=== PATIENT | female | born 1990 | race Caucasian/White ===

== ENCOUNTER 2021-02-10 19:08 | Emergency (ER) | payer OTHER ==
[2021-02-10 19:52] LABS: BASOPHIL 0.3 % (0-2); EOSINOPHIL 0.3 % (0-5); HCT 41.4 % (37.0-47.0); HGB 13.6 g/dl (12.5-16.0); LYMPHOCYTE 17.2 % (15-48); MCHC 32.9 g/dL (32.0-36.0); MCV 82.3 fL (78.0-100.0); MONOCYTE 4.6 % (0-12); MPV 10.3 fL (6.0-9.5); NEUTROPHIL 77.3 % (41-80); NRBC 0; PLT 369 K/uL (150-400); RBC 5.03 M/uL (4.20-5.40); RDW 13.2 % (11.5-14.0); WBC 11.5 K/uL (4.0-10.5)
[2021-02-10 19:57] LABS: BILIRUBIN NEGATIVE (NEGATIVE); BLOOD 3+ Ery/uL (NEGATIVE); CLARITY CLEAR (CLEAR); COLOR YELLOW (YELLOW); GLUCOSE (U) NORMAL (NORMAL); LEUKOCYTES 3+ Leu/uL (NEGATIVE); NITRITE NEGATIVE (NEGATIVE); PROTEIN NEGATIVE (NEGATIVE); SPECIFIC GRAVITY 1.025 (1.001-1.030); UROBILINOGEN 0.2 mg/dL (0.2-1.0); pH 6.5 (5.0-9.0)
[2021-02-10 20:03] LABS: BACTERIA 3+; MUCOUS TRACE; SQUAMOUS EPITHELIAL CELLS 20-50
[2021-02-10 20:09] LABS: BILIRUBIN - TOTAL 0.5 mg/dL (0.2-1.0); CREATININE 0.8 mg/dL (0.51-0.95); GLOBULIN (CALCULATION) 3.8 g/dL; TOTAL PROTEIN 7.8 g/dL (6.4-8.2)
[2021-02-10] MEDS ORDERED: PHENERGAN25 M1 PO (23:43)
[2021-02-10] MEDS ORDERED: PRENATAL FORMU1 EACH PO (23:43)
[2021-02-10] MEDS ORDERED: CEPHALEXIN500 M1 PO (23:43)
== END 2021-02-11 00:01 | disposition home or self-care (01) ==
LOC: FER 19:08
PROVIDERS: Emergency Medicine Emergency Medical Services
DX: O23.11 Infections of bladder in pregnancy, first trimester (principal); O99.891 Other specified diseases and conditions complicating pregnancy; R19.7 Diarrhea, unspecified; Z88.6 Allergy status to analgesic agent; Z88.1 Allergy status to other antibiotic agents; Z3A.01 Less than 8 weeks gestation of pregnancy
CPT/HCPCS: 36415; 76815; 80053; 81001; 83605; 83690; 84145; 84702; 85025; 86900; 86901; J0696; J2405; J7030; Q0169

== ENCOUNTER 2021-02-17 18:04 | Emergency (ER) | payer OTHER ==
[~2021-02-17 18:04] MED LIST: CEPHALEXIN500 M1 PO; PHENERGAN25 M1 PO; PRENATAL FORMU1 EACH PO
[2021-02-17 19:37] LABS: BASOPHIL 0.2 % (0-2); EOSINOPHIL 0.2 % (0-5); HCT 39.7 % (37.0-47.0); HGB 13.3 g/dl (12.5-16.0); LYMPHOCYTE 18.5 % (15-48); MCH 27.7 pg (25.0-31.0); MCHC 33.5 g/dL (32.0-36.0); MCV 82.5 fL (78.0-100.0); MONOCYTE 4.5 % (0-12); MPV 9.9 fL (6.0-9.5); NEUTROPHIL 76.3 % (41-80); NRBC 0; PLT 322 K/uL (150-400); RBC 4.81 M/uL (4.20-5.40); RDW 12.9 % (11.5-14.0); WBC 9.1 K/uL (4.0-10.5)
[2021-02-17 20:00] LABS: ALBUMIN 3.6 g/dL (3.4-5.0); BILIRUBIN - TOTAL 0.4 mg/dL (0.2-1.0); BUN/CREAT RATIO (CALC) 10.6 RATIO; CREATININE 0.85 mg/dL (0.51-0.95); GLOBULIN (CALCULATION) 3.9 g/dL; POTASSIUM 4.2 mmol/L (3.5-5.1); TOTAL PROTEIN 7.5 g/dL (6.4-8.2)
[2021-02-17 20:08] LABS: BILIRUBIN NEGATIVE (NEGATIVE); BLOOD NEGATIVE Ery/uL (NEGATIVE); CLARITY CLEAR (CLEAR); COLOR YELLOW (YELLOW); GLUCOSE (U) NORMAL (NORMAL); LEUKOCYTES NEGATIVE Leu/uL (NEGATIVE); NITRITE NEGATIVE (NEGATIVE); PROTEIN TRACE (LOW) mg/dL (NEGATIVE); UROBILINOGEN 0.2 mg/dL (0.2-1.0)
[2021-02-17 20:21] LABS: AMORPHOUS URATES CRYSTALS MODERATE; BACTERIA TRACE; URINARY RBC RARE; URINARY WBC RARE
== END 2021-02-17 20:40 | disposition home or self-care (01) ==
LOC: FER 18:04
PROVIDERS: Nurse Practitioner Family
DX: O21.9 Vomiting of pregnancy, unspecified (principal); Z88.6 Allergy status to analgesic agent; Z88.1 Allergy status to other antibiotic agents; Z3A.01 Less than 8 weeks gestation of pregnancy
CPT/HCPCS: 36415; 80053; 81001; 85025; 99284; J7120

== ENCOUNTER 2021-03-02 05:07 | Emergency (ER) | payer OTHER ==
[2021-03-02 06:20] LABS: BASOPHIL 0.1 % (0-2); EOSINOPHIL 0.4 % (0-5); HCT 39.2 % (37.0-47.0); LYMPHOCYTE 10.5 % (15-48); MCH 27.4 pg (25.0-31.0); MCHC 33.2 g/dL (32.0-36.0); MCV 82.7 fL (78.0-100.0); MONOCYTE 4.5 % (0-12); MPV 10.1 fL (6.0-9.5); NEUTROPHIL 84.2 % (41-80); NRBC 0; PLT 368 K/uL (150-400); RBC 4.74 M/uL (4.20-5.40); WBC 14.3 K/uL (4.0-10.5)
[2021-03-02 06:41] LABS: ALBUMIN 3.9 g/dL (3.4-5.0); BILIRUBIN - TOTAL 0.4 mg/dL (0.2-1.0); BUN/CREAT RATIO (CALC) 8.9 RATIO; CREATININE 0.79 mg/dL (0.51-0.95); GLOBULIN (CALCULATION) 3.5 g/dL; POTASSIUM 4.2 mmol/L (3.5-5.1); TOTAL PROTEIN 7.4 g/dL (6.4-8.2)
[2021-03-02 09:06] LABS: BILIRUBIN NEGATIVE (NEGATIVE); BLOOD NEGATIVE Ery/uL (NEGATIVE); CLARITY CLEAR (CLEAR); COLOR YELLOW (YELLOW); GLUCOSE (U) NORMAL (NORMAL); LEUKOCYTES NEGATIVE Leu/uL (NEGATIVE); NITRITE NEGATIVE (NEGATIVE); PROTEIN NEGATIVE (NEGATIVE); SPECIFIC GRAVITY 1.015 (1.001-1.030); UROBILINOGEN 0.2 mg/dL (0.2-1.0)
[2021-03-02] MEDS ORDERED: MIRALAX 238GM238 GM PO (09:41)
[2021-03-02] MEDS ORDERED: DULCOLAX5 M1 PO (09:41)
== END 2021-03-02 10:03 | disposition home or self-care (01) ==
LOC: FER 05:07
PROVIDERS: Emergency Medicine
DX: O99.611 Diseases of the digestive system complicating pregnancy, first trimester (principal); K59.00 Constipation, unspecified; O21.9 Vomiting of pregnancy, unspecified; O99.891 Other specified diseases and conditions complicating pregnancy; R19.7 Diarrhea, unspecified; Z88.1 Allergy status to other antibiotic agents; Z88.8 Allergy status to other drugs, medicaments and biological substances; Z3A.08 8 weeks gestation of pregnancy
CPT/HCPCS: 36415; 80053; 81003; 83690; 84702; 85025; 99284; J7030

== ENCOUNTER 2021-06-10 02:16 | Emergency (ER) | payer OTHER ==
[~2021-06-10 02:16] MED LIST changes: +DULCOLAX5 M1 PO; +MIRALAX 238GM238 GM PO
[2021-06-10] MEDS ORDERED: METAMUCIL0.4 GM PO (05:48)
== END 2021-06-10 06:18 | disposition home or self-care (01) ==
LOC: FER 02:16
DX: O99.612 Diseases of the digestive system complicating pregnancy, second trimester (principal); K59.03 Drug induced constipation; Z98.890 Other specified postprocedural states; Z79.899 Other long term (current) drug therapy; Z79.82 Long term (current) use of aspirin; Z3A.23 23 weeks gestation of pregnancy
CPT/HCPCS: 99283